=== PATIENT | female | born 1965 | race African-American/Black ===

== ENCOUNTER → 2019-05-12 | Outpatient (CLI) | payer OTHER ==
[~2019-05-12] VITALS: Ht 162.6 cm; Wt 99.8 kg
[~2019-05-12] MED LIST: ACETAMINOPHEN-1 EAC1 PO; AKWA TEARS EYE15 ML OP; AMARYL2 MG PO; AMITRIPTYLINE H25 M4 PO; APAP500 PO; ARANESP25 MCG/1 M IV; ASPIR 8181 MG PO; CLONAZEPAM 1 MG1 M1 PO; COLACE100 MG PO; COREG6.25 MG PO; COUMADIN 5 MG TA5 M1 PO; ELIQUIS2.5 MG PO; FERRLECIT62.5 MG/2 IV; HUMALOG100 UNIT/1 SUBQ; IMDUR 30 MG TAB30 M1 PO; LANTUSSOLASTAR SQ; LATANOPROST 0.2.5 ML OPHTHALMIC; LEVEMIR FL100 UNIT/2 SUBQ; LYRICA 50 MG50 MG PO; MANNITOL IV; METHADONE HCL5 MG PO; MIDODRINE HCL 55 M1 PO; MOBIC15 MG PO; NEPHROCAPS SOFT1 CAP PO; NOVOLOG FL100 UNIT/M SUBQ; RENVELA800 MG PO; SENNA8.6 MG PO; SENSIPAR 30 MG30 MG PO; SERTRALINE HCL50 MG PO; SIMVASTATIN40 MG PO; TRADJENTA5 MG; TRAMADOL 50 MG50 MG PO; ZANTAC 150MG T150 MG PO; [UNRECOGNIZED DRUG - OTHER] PO
[2019-05-12 10:06] VITALS: BP 138/89
--- NOTE | 2019-05-12 10:27 | NUR ---
Pain Clinic Assessment: 1. History of Osteoarthritis: Left Lower Extremity Right Upper Extremity History of Rheumatoid Arthritis: Not Applicable 2. Height: 5 ft. 4 in. 162.6 cm. Weight: 220.0 lb. oz. 99.792 kg. Patient's BMI: 37.7 3. Vital Signs: BP: 138/89 Pulse: 89 Resp: 16 Temp: 02 Sat: 99 ECG Mon: 4. Pain Intensity: 9 5. Fall Risk: Dizziness: N Needs help standing or walking: Y Fallen in the last 3 months: N Fall risk comments: 6. Patient on Blood Thinner: ARNAV 7. History of Hypertension: N 8. Opioid Therapy greater than 6 weeks: Y Opiate Contract Signed: 9. Risk Assessment Tool Provided: 10. Functional Assessment Tool: 60/ 11. Recreational Drug Use: Never Drug Type: Tobacco Use: Former Smoker Tobacco Type: Cigarettes Amount or Packs/day: 1 How Many Years: 28 Alcohol Use: No Frequency: Quant:
--- NOTE | 2019-05-17 17:25 | HPC ---
[facility] [place] [address] PAIN MANAGEMENT CONSULTATION Name: DIAZ VALLADARES Room #: REG [facility].#: [id number] Admission: 05/12/19 Attend Phys: Sebastien Mejia MD Discharge: Date of : 63 Report #: [id number] THIS REPORT FOR: //name// CC: Enma Mejia DATE OF SERVICE: 05/12/2019 CHIEF COMPLAINT: Chronic pain. HISTORY OF PRESENT ILLNESS: The patient is here today at the request of Dr. Diaz for pain of a diffuse nature along the right side. She is markedly debilitated with chronic disease including chronic renal failure, on dialysis Thursday, Thursday, Thursday and insulin-dependent diabetes. In addition, she suffers from hypertension and obesity. She says that her pain is in her right shoulder, radiates through her right arm and biceps down into her hand. She has lost her thumb, index and third finger. She apparently had an infection following an IV placement. Because of her poor health, she is a great risk for complications. 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 She also complains of pain along her right flank, right hip and down into the right leg. Pain drawing traces these pains. MEDICATIONS: Include insulin, Eliquis, Tradjenta, tramadol, simvastatin, ____, senna, Lyrica 100 mg at bedtime and 50 mg daytime, midodrine, meloxicam, latanoprost, docusate, aspirin, amitriptyline 50 mg at bedtime and Tylenol. ALLERGIES: LISINOPRIL, HALOPERIDOL, MORPHINE. PAST MEDICAL HISTORY: Significant for the above-mentioned issues with diabetes, chronic renal failure on dialysis, obesity and hyperlipidemia. SOCIAL HISTORY: She is currently living at home with her mother and others in the home. She is unhappy there. She denies use of tobacco, quitting 6 years ago. She denies use of alcohol and the use of marijuana or any other schedule 1 or illegal medications. PHYSICAL EXAMINATION: GENERAL: She is pleasant female in a wheelchair. She is well dressed and well groomed. VITAL SIGNS: Her blood pressure is 138/89, heart rate 89, respirations 16, O2 sat 99. She is 5 feet 4 inches, 220 pounds, BMI 37.7. Pupils are equal, round, react to light. EOMs are intact. NECK: Range of motion is somewhat limited in neck extension and rotation [address] [address] PAIN MANAGEMENT CONSULTATION Name: DIAZ VALLADARES Room #: REG [facility]#: [id number] Admission: 05/12/19 Attend Phys: Sebastien Mejia MD Discharge: Date of : 63 Report #: [id number] causing some pain into the right arm. She has tenderness in the suprascapular region. CHEST: Clear. CARDIAC: Rhythm was regular. I could not appreciate a murmur. ABDOMEN: Soft. In the groin, she has shunt for renal dialysis. MUSCULOSKELETAL: Demonstrates decreased range of motion of the cervical spine. Decreased range of motion of both shoulders, right worse than left. There is tenderness in the shoulder joint as well as along the scapula. There is a scar in the inside of the upper arm from previous dialysis shunt. She has pain in the right elbow, pain in the right wrist and she has amputation of the index and third finger of the right hand to the level of the metacarpal. There is tenderness there. There are no open wounds. Examination of the left arm also reveals decreased range of motion of the shoulder and tenderness. 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 She does have some pincer movement of her fourth and fifth finger on the right. Spine is tender across the lumbosacral segment. She has pain all along the right flank. 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 There is no stump pain. She complains of pain along the right upper leg and into the stump. She does not complain of phantom limb pain. IMPRESSION: Chronic intractable pain with multiple pain generators. Much of her pain is in the upper extremity. She likely has some component of diabetic neuropathy in addition to arthritis throughout the larger and smaller joints. RECOMMENDATIONS: I think all of her medications are fine. She does not take the tramadol offered, she says it is collecting on her shelves. She should limit these medications for the home as they can have an abusive effect if taken by others. She said she did well with low dose hydrocodone, 5 mg provided twice a day or 60 tablets calculates to a morphine milligram equivalent of 10. This is quite low and if it provides her some significant relief, I think it could be provided to her ethically, appropriately and safely. We have not been instructed to avoid opioids completely, but to be cautious in their use. I do not worry too much in this setting about addiction. This poor woman is suffering with her chronic disease. If this provides her some measure of relief, I think it is quite reasonable for her to receive it and she can receive a level of 10 morphine milligram equivalents or 2 hydrocodone from her primary care physician, Dr. Parada. I do not believe it is necessary for such patients to need additional physician to their already large number of providers due to multiple comorbidities for a simple pain medication. I have told her that if Dr. Parada is unwilling to provide the medication for her, I would do so under terms of written opioid agreement in our clinic, but for now [facility] [address] [place] [address] PAIN MANAGEMENT CONSULTATION Name: DIAZ VALLADARES Room #: [facility].#: [id number] Admission: 05/12/19 Attend Phys: Sebastien Mejia MD Discharge: Date of : 63 Report #: [id number] for reasons mentioned above, would prefer that she continue to see her primary care physician for these treatments. Followup visit planned as needed. <ELECTRONICALLY SIGNED> By: Sebastien Mejia MD 05/17/19 1725 [id number] Sebastien Mejia MD /nt
== END ==
LOC: PAIN 05-09 06:50
DX: G89.4 Chronic pain syndrome (principal); M79.603 Pain in arm, unspecified; I12.0 Hypertensive chronic kidney disease with stage 5 chronic kidney disease or end stage renal disease; E11.22 Type 2 diabetes mellitus with diabetic chronic kidney disease; N18.6 End stage renal disease; E78.5 Hyperlipidemia, unspecified; Z79.4 Long term (current) use of insulin; Z79.899 Other long term (current) drug therapy; Z88.8 Allergy status to other drugs, medicaments and biological substances